=== PATIENT | male | born 1945 | race African-American/Black ===

== ENCOUNTER 2019-09-24 19:59 | Inpatient (IN) | payer MEDICARE, OTHER ==
[2019-09-24 20:00] VITALS: BP 77/44
--- NOTE | 2019-09-24 20:00 | NUR ---
GPS RN NOTE, PATIENT IS NEW ADMISSION FROM [facility]. PATIENT VITAL SIGNS FOLLOWS B/P 77/44 PULSE 47, SPO2 98 % ON 15 LITERS OF NON-REBREATHER O2, AND RESPIRATIONS 20. PATIENT IS ALERT X 1 WITH PERIODS OF NON RESPONSIVENESS AND SYNCOPE. PAGED [facility] AND INFORMED [facility]. [facility] GAVE ORDER TO DISCHARGE PATIENT TO E.R. FOR MEDICAL CLEARANCE. PAGED DR KILGORE AND INFORMED HIM FOR MY FINDINGS. DR KILGORE AGREED WITH TRANSFER. PACKING ROOM WORKER FLORENCE INFORMED OF TRANSFER. PATIENT TRANSFER TO E.R. WITH TWO EMT AND ONE NURSE WITH ACLS PARODICAL IN PLACE.
[2019-09-25] MEDS ORDERED: CHOL400T11 PO (10:11)
[2019-09-25] MEDS ORDERED: SENN-18 PO (10:11)
[2019-09-25] MEDS ORDERED: CHLO25TA2 PO (10:11)
[2019-09-25] MEDS ORDERED: AMLO10TA7 PO (10:11)
[2019-09-25] MEDS ORDERED: METO25TA4 PO (10:11)
[2019-09-25] MEDS ORDERED: LISI40TA4 PO (10:11)
[2019-09-25] MEDS ORDERED: QUET100T PO (10:11)
[2019-09-25] MEDS ORDERED: ARIP20TA4 PO (10:11)
[2019-09-25] MEDS ORDERED: ATOR40TA PO (10:11)
[2019-09-25] MEDS ORDERED: ASPI-605 PO (10:11)
[2019-09-25] MEDS ORDERED: LAMO200T10 PO (10:11)
== END 2019-09-24 20:19 | disposition short-term general hospital (02) | DRG 885 ==
LOC: GPS 19:59
PROVIDERS: ADMIT Psychiatry & Neurology Psychiatry; ATTEND Registered Nurse
DX: F29 Unspecified psychosis not due to a substance or known physiological condition (principal); Z91.14 Patient's other noncompliance with medication regimen

== ENCOUNTER 2019-09-24 20:36 | Inpatient (IN) | payer MEDICARE ==
[~2019-09-24] VITALS: Ht 172.7 cm; Wt 79.8 kg
--- NOTE | 2019-09-24 20:48 | NUR ---
PT BIB TRANSFER. PT WAS ADMITTED TO GPS FROM [facility] WHICH WAS PLACED ON 5150 FOR GD. WHILE BEING TRANSFERED TO GPS IN THE ELEVATOR PT HAD A SYNCOPAL EPISODE FOR 2 MINS. PT BP WAS IN THE LOW 80'S PER TRANSFER. PT THEN WAS SAT UP AND BECAME COUNSIOUS. PT BROUGHT TO E.D WAS PALCED IN BED 8 ON MONITOR AND PULSE OX. BP WAS 96/67 AND WAS SAT 100% ON ROOM AIR. PT IS AAOX4. PT STATED "I BECAME LIGHT HEADED AND MIGHT HAVE LOST CONSIOUS."
--- NOTE | 2019-09-24 20:58 | NUR ---
BLOOD COLLECTED BY LITHOPONE MILL WORKER.
[2019-09-24] MEDS ORDERED: IV NS 0.9% 1,000 ML BAG IV ONE (21:00)
[2019-09-24 21:10] LABS: BASOPHILS % (AUTO) 0.4 % (0.0-2.0); EOSINOPHILS % (AUTO) 0.5 % (0.0-6.0); HEMATOCRIT 43 % (39-51); HEMOGLOBIN 14.2 g/dL (13.5-17.5); LYMPHOCYTES % (AUTO) 35.3 % (20.0-44.0); MEAN CORPUSCULAR HGB CONC 33 g/dl (31.0-36.0); MEAN CORPUSCULAR VOLUME 95 fL (80-96); MONOCYTES # (AUTO) 0.4 /CMM (0.1-1.30); MONOCYTES % (AUTO) 6.4 % (2.0-12.0); NEUTROPHILS # (AUTO) 3.3 /CMM (1.8-8.9); NEUTROPHILS % (AUTO) 57.4 % (43.0-81.0); PLATELET COUNT (AUTO) 150 /CMM (150-450); RED BLOOD CELL COUNT(AUTO) 4.47 MIL/uL (4.5-6.0); WHITE BLOOD COUNT (AUTO) 5.7 K/uL (4.3-11.0)
--- NOTE | 2019-09-24 21:15 | NUR ---
XRAY AT BEDSIDE
--- NOTE | 2019-09-24 21:17 | NUR ---
BED ASSIGNMENT 310-2
[2019-09-24 21:35] LABS: CALCIUM, SERUM 9.7 mg/dL (8.5-10.1); CARBON DIOXIDE 26 mmol/L (21-32); CHLORIDE 105 mmol/L (98-107); CREATININE 1.2 mg/dL (0.6-1.3); GLUCOSE 135 mg/dL (74-106); POTASSIUM 3.9 mmol/L (3.5-5.1); SODIUM SERUM 139 mmol/L (136-145); UREA NITROGEN, BLOOD 16 mg/dL (7-18)
--- NOTE | 2019-09-24 21:58 | NUR ---
REPORT GIVEN TO JOSE EDUARDO NOYOLA FOR EV.
[2019-09-24] MEDS ORDERED: IV NS 0.9% 1,000 ML IV PRN (22:05)
[2019-09-24] MEDS ORDERED: ACETAMINOPHEN 325 MG TABLET PO PRN (22:30)
[2019-09-24] MEDS ORDERED: MAGNESIUM HYDROXIDE 30 ML UDC PO PRN (22:30)
[2019-09-24] MEDS ORDERED: Z GUARD REMEDY 2 OZ OINT TP PRN (22:30)
[2019-09-24] MEDS ORDERED: ONDANSETRON HCL/PF 4 MG/2 ML VIAL IVP PRN (22:30)
[2019-09-24] MEDS ORDERED: MAG HYDROX/AL HYDROX/SIMETH 30 ML UDC PO PRN (22:30)
[2019-09-24 22:45] VITALS: BP_SYST 122; BP_SYST 126; BP_SYST 132; BP_DIAS 75; BP_DIAS 78
--- NOTE | 2019-09-24 22:45 | NUR ---
SPECIALTY COOKLITHARGE SUPERVISOR NOTE RECEIVED PATIENT VIA GURNEY. PATIENT AMBULATED TO BED WITH STAND BY ASSIST. A/OX3. TOLERATING ROOM AIR. RESPIRATIONS ARE EVEN AND UNLABORED. NO S/S SOB NOTED. NO C/O PAIN AT THIS TIME. EXTERNAL TELE MONITOR APPLIED READING SINUS MILLIE HR 51 WITH BBB. IN NO APPARENT DISTRESS. IV ACCESS IN RFA#20 PATENT AND SALINE LOCKED. ROADMASTER OBTAINED ORTHOSTATIC VITALS AND BELONGING LIST. INATAL PHYSICAL ASSESSMENT COMPLETED. SKIN ASSESSMENT COMPLETED, PHOTOS TAKEN AND PLACED IN CHART. SITTER AT BEDSIDE. BED IS LOW AND LOCKED, HOB ELEVATED IN SEMI FOWLERS, SIDE RIALS UP X2. CALL LIGHT WITHIN REACH. WILL CONTINUE TO MONITOR.
--- NOTE | 2019-09-24 22:48 | NUR ---
PATIENT TAKEN UP TO ADMITTED ROOM.
[2019-09-24] MEDS: ENOXAPARIN SODIUM 40 MG/0.4 ML DISP.SYRIN SQ SCH (23:10)
[2019-09-25] VITALS: BP 113/73
--- NOTE | 2019-09-25 00:21 | NUR ---
telephone station installer note called lab to inform them there is specimen for sheepskin pickler. urine sample. will continue to monitor.
[2019-09-25 01:41] LABS: APPEARANCE,URINE SL CLOUDY (CLEAR); BILIRUBIN,URINE NEGATIVE (NEGATIVE); BLOOD, URINE NEGATIVE Ery/uL (NEGATIVE); COLOR,URINE YELLOW (YELLOW); KETONES,URINE NEGATIVE (NEGATIVE); LEUKOCYTE ESTERASE ,URINE NEGATIVE (NEGATIVE); NITRITE, URINE NEGATIVE (NEGATIVE); PH,URINE 5.5 (5.0-8.0); PROTEIN,URINE NEGATIVE (NEGATIVE); UGLUCOSE NEGATIVE (NEGATIVE); UROBILINOGEN,URINE 0.2 EU/dL (0.2)
[2019-09-25 04:00] VITALS: BP 143/80
[2019-09-25] MEDS: PANTOPRAZOLE 40 MG TABLET.DR PO SCH (06:40)
--- NOTE | 2019-09-25 07:00 | NUR ---
ARTS ADMINISTRATOR CLOSING NOTE PATIENT IN BED. A/OX3. REMAINS TOLERATING ROOM AIR. RESPIRATIONS ARE EVEN AND UNLABORED. NO SOB NOTED. NO C/O PAIN. EXTERNAL TELE MONITOR READING SINUS MILLIE. NO DISTRESS. IV ACCESS REMAINS IN RFA#20 RUNNING NS@100ML/HR. SITTER AT BEDSIDE. BED IS LOW AND LOCKED, HOB ELEVATED IN SEMI FOWLERS, SIDE RIALS UP X2. CALL LIGHT WITHIN REACH. WILL ENDORSE TO NEXT SHIFT
--- NOTE | 2019-09-25 08:01 | NUR ---
MS/RN Opening note Patient received from retail shift manager. A/O X4, vital signs taken, no fevers. Tele monitor reading SB with BBB, heart rate 51. IVF infusing at 100ml/hr via right arm 20g, no signs of any infiltration seen. Awaiting consults with Dr Hernandez and Dr Finch. Sitter at bedside and within arms reach of patient due to being on 51/50 hold (09/22 - 09/25 1630).
[2019-09-25 10:00] VITALS: BP_SYST 137; BP_SYST 139; BP_SYST 152; BP_DIAS 100; BP_DIAS 76; BP_DIAS 83
--- NOTE | 2019-09-25 10:00 | NUR ---
MS/RN Orthostatic BP Orthostatic blood pressures recorded on long vital signs form.
[2019-09-25] MEDS ORDERED: LAMO200T10 PO (10:11)
[2019-09-25] MEDS ORDERED: LISI40TA4 PO (10:11)
[2019-09-25] MEDS ORDERED: QUET100T PO (10:11)
[2019-09-25] MEDS ORDERED: CHOL400T11 PO (10:11)
[2019-09-25] MEDS ORDERED: ARIP20TA4 PO (10:11)
[2019-09-25] MEDS ORDERED: ATOR40TA PO (10:11)
[2019-09-25] MEDS ORDERED: METO25TA4 PO (10:11)
[2019-09-25] MEDS ORDERED: CHLO25TA2 PO (10:11)
[2019-09-25] MEDS ORDERED: AMLO10TA7 PO (10:11)
[2019-09-25] MEDS ORDERED: SENN-18 PO (10:11)
[2019-09-25] MEDS ORDERED: ASPI-605 PO (10:11)
--- NOTE | 2019-09-25 11:52 | NUR ---
MS/RN S/B Dr Hernandez Seen by Dr Hernandez - orthostatic blood pressures ordered to be taken every shift. Abnormal EKG, no medication to be adminsitered that slow AV conduction. Labs ordered for tomorrow.
[2019-09-25 12:42] LABS: EOSINOPHILS % (AUTO) 1.3 % (0.0-6.0); HEMATOCRIT 38 % (39-51); HEMOGLOBIN 12.7 g/dL (13.5-17.5); LYMPHOCYTES # (AUTO) 1.6 /CMM (0.8-4.8); MEAN CORPUSCULAR HGB CONC 33 g/dl (31.0-36.0); MEAN CORPUSCULAR VOLUME 95 fL (80-96); MONOCYTES # (AUTO) 0.3 /CMM (0.1-1.30); NEUTROPHILS # (AUTO) 2.7 /CMM (1.8-8.9); NEUTROPHILS % (AUTO) 56.7 % (43.0-81.0); PLATELET COUNT (AUTO) 114 /CMM (150-450); RED BLOOD CELL COUNT(AUTO) 4.04 MIL/uL (4.5-6.0); WHITE BLOOD COUNT (AUTO) 4.7 K/uL (4.3-11.0)
[2019-09-25 12:58] LABS: CREATININE 0.9 mg/dL (0.6-1.3); POTASSIUM 3.4 mmol/L (3.5-5.1)
[2019-09-25 13:02] LABS: ALBUMIN 3.3 g/dL (3.4-5.0); BILIRUBIN,TOTAL 0.6 mg/dL (0.2-1.0); MAGNESIUM 2.1 mg/dL (1.8-2.4); PHOSPHORUS 3.3 mg/dL (2.5-4.9); TOTAL PROTEIN, SERUM 7.8 g/dL (6.4-8.2)
[2019-09-25 13:10] LABS: THYROID STIMULATING HORMONE 0.855 uIU/mL (0.358-3.74)
[2019-09-25 16:00] VITALS: BP 142/86
--- NOTE | 2019-09-25 18:44 | NUR ---
Seen by dr. Finch ; new meds prescribed and consent sighed and faxed to pharmacy
--- NOTE | 2019-09-25 18:49 | NUR ---
Patient resting in bed. Breathing unlabored and even , no distress noted, no complain of pain or discomfort. Good appetite noted. IV fluid running as ordered. Patient ambulatory, sitter at bedside. All needs attended, patient kept comfortable. Will endorse to next shift for EV
--- NOTE | 2019-09-25 19:48 | NUR ---
DOMESTIC MAID OPENING NOTES PATIENT AWAKE AND WATCHING TV IN BED. SITTER PRESENT AT THE BEDSIDE; PATIENT ON 5150 HOLD. A/OX4. ON RA. NO S/S OF ACUTE RESPIRATORY DISTRESS; BREATHING IS EVEN AND UNLABORED. NO C/O PAIN AT THIS TIME. IV PRESENT ON RIGHT FA, SIZE 20, INTACT & PATENT, NS RUNNING AT 100ML/HR. SAFETY MEASURES IN PLACE AND PATIENT'S NEEDS MET. BED LOCKED, HOB ELEVATED, SIDE RAILS X2, CALL LIGHT WITHIN REACH. WILL CONTINUE TO MONITOR.
[2019-09-25 20:00] VITALS: BP 147/81
[2019-09-25] MEDS: ENOXAPARIN SODIUM 40 MG/0.4 ML DISP.SYRIN SQ SCH ×3 (21:00→22:00)
[2019-09-26] VITALS (7 sets, daily range): BP systolic 116–179; BP diastolic 59–94
[2019-09-26] MEDS ORDERED: hydrALAZINE HCL IV 20 MG VIAL IV PRN (06:00)
--- NOTE | 2019-09-26 06:01 | NUR ---
BRIM CURLER NOTES PATIENT'S BP: 179/94, HR: 71. NOTIFIED LEAK INSPECTOR DIRECTOR [facility], KHANH JERONIMO. RECEIVED ORDERS FOR PRN HYDRALAZINE 10 MG IV PUSH. WILL CARRY OUT.
[2019-09-26] MEDS: PANTOPRAZOLE 40 MG TABLET.DR PO SCH (06:31)
--- NOTE | 2019-09-26 06:44 | NUR ---
MUSIC RESEARCHER CLOSING NOTES PATIENT AWAKE IN BED. SITTER PRESENT AT THE BEDSIDE; PATIENT ON 5150 HOLD. A/OX4. ON RA. NO S/S OF ACUTE RESPIRATORY DISTRESS; BREATHING IS EVEN AND UNLABORED. NO C/O PAIN AT THIS TIME. TELE MONITOR READING SINUS MILLIE WITH OCCASIONAL BUNDLE BRANCH BLOCK, HEART RATE 56. IV PRESENT ON RIGHT FA, SIZE 20, INTACT & PATENT, HEP LOCKED AT THIS TIME. SAFETY MEASURES IN PLACE AND PATIENT'S NEEDS MET. BED LOCKED, HOB ELEVATED, SIDE RAILS X2, CALL LIGHT WITHIN REACH. WILL ENDORSE TO DAY SHIFT NURSE PLAN OF CARE.
--- NOTE | 2019-09-26 06:55 | NUR ---
CAR CONSTRUCTION SUPERINTENDENT CLOSING NOTES PATIENT'S BP: 152/78, HR: 55
--- NOTE | 2019-09-26 07:30 | NUR ---
Tele/RN Opening note Received patient in bed, AO x 3-4, able to responds all stimuli. patient denied pain or discomfort. Skin is war to touch, kept clean/dry, intact IV site. Respiratory even and unlabored with room air. Keep bed in lock with elevated HOB for secure airway. Sitter at bed side for safety. Call light within reach, will continue to monitor.
[2019-09-26 08:40] LABS: BASOPHILS % (AUTO) 0.4 % (0.0-2.0); EOSINOPHILS % (AUTO) 1.3 % (0.0-6.0); HEMATOCRIT 42 % (39-51); HEMOGLOBIN 13.8 g/dL (13.5-17.5); LYMPHOCYTES # (AUTO) 1.1 /CMM (0.8-4.8); LYMPHOCYTES % (AUTO) 29.9 % (20.0-44.0); MEAN CORPUSCULAR HGB CONC 33 g/dl (31.0-36.0); MEAN CORPUSCULAR VOLUME 95 fL (80-96); MONOCYTES # (AUTO) 0.3 /CMM (0.1-1.30); MONOCYTES % (AUTO) 6.9 % (2.0-12.0); NEUTROPHILS # (AUTO) 2.3 /CMM (1.8-8.9); NEUTROPHILS % (AUTO) 61.5 % (43.0-81.0); PLATELET COUNT (AUTO) 129 /CMM (150-450); RED BLOOD CELL COUNT(AUTO) 4.45 MIL/uL (4.5-6.0); WHITE BLOOD COUNT (AUTO) 3.7 K/uL (4.3-11.0)
[2019-09-26] MEDS: HALOPERIDOL 5 MG TABLET PO SCH ×3 (08:40→17:23)
[2019-09-26] MEDS: DIVALPROEX SODIUM 250 MG TABLET.DR PO SCH ×3 (08:40→17:23)
[2019-09-26] MEDS: BENZTROPINE MESYLATE (1 MG) 1 MG TABLET PO SCH ×3 (08:42→17:23)
[2019-09-26 09:07] LABS: ALBUMIN 3.8 g/dL (3.4-5.0); BILIRUBIN,TOTAL 0.8 mg/dL (0.2-1.0); CALCIUM, SERUM 9.3 mg/dL (8.5-10.1); CREATININE 0.9 mg/dL (0.6-1.3); MAGNESIUM 1.9 mg/dL (1.8-2.4); POTASSIUM 3.7 mmol/L (3.5-5.1); TOTAL PROTEIN, SERUM 8.5 g/dL (6.4-8.2)
--- NOTE | 2019-09-26 18:30 | NUR ---
MS/RN Closing note Patient in bed comfortably, does no appears pain or discomfort. Skin is warm to touch, keep clean/dry, intact IV site. Respiratory even and unlabored with room air, no sob or distress observed. Sitter at bed side for supervised safety patient. Keet bed in lock with elevated HOB for secure airway, call light within reach, will endorse fast food shift lead.
--- NOTE | 2019-09-26 19:30 | NUR ---
MS/RN OPENING NOTES: RECEIVED PATIENT AWAKE AND RESTING IN BED. A/OX3-4. ON RA. NO S/S OF ACUTE RESPIRATORY DISTRESS; BREATHING IS EVEN AND UNLABORED. NO C/O PAIN AT THIS TIME. IV PRESENT ON RIGHT FA, #20G, INTACT & PATENT, NS RUNNING AT 100ML/HR. PT'S HOLD AT @1629. PER RN REPORT, PT IS TO BE DC TO GPS. SAFETY MEASURES IN PLACE AND PATIENT'S NEEDS MET. BED LOCKED, HOB ELEVATED, SIDE RAILS X2, CALL LIGHT WITHIN REACH. WILL CONTINUE TO MONITOR ACCORDINGLY.
[2019-09-26] MEDS: ENOXAPARIN SODIUM 40 MG/0.4 ML DISP.SYRIN SQ SCH (21:34)
--- NOTE | 2019-09-26 21:52 | NUR ---
MS/BUSINESS CONTINUITY COORDINATOR NOTES: PT PLACED ON 14 DAY HOLD [address] KILGORE. IV ON THE RFA #20G DC'D. PT STABLE. VS WNL. ALL DUE MEDS GIVEN ORDERED. WILL ENDORSE AND GIVE REPORT TO RN FROM GPS FOR EV. PT TEACHING GIVEN. ALL CONSENT SIGNED. PT LEFT UNIT AT 2200 VIA WHEEL CHAIR.
[2019-09-26] MEDS ORDERED: HALO5TAB PO (23:33)
[2019-09-26] MEDS ORDERED: BENZ2AMP3 PO (23:33)
[2019-09-26] MEDS ORDERED: DIVA-78 PO (23:33)
[2019-09-26] MEDS ORDERED: PANT40SU PO (23:33)
[2019-09-26] MEDS ORDERED: ENOX40DI SQ (23:33)
[2019-09-26] MEDS ORDERED: ALLA266C2 TP (23:33)
[2019-09-27] MEDS ORDERED: ACET-868 PO (07:44)
[2019-09-27] MEDS ORDERED: MAGN400O6 PO (07:44)
[2019-09-27] MEDS ORDERED: MAG30ORA PO (07:44)
== END 2019-09-26 22:00 | DRG 312 ==
LOC: ER 20:38 → TELE 21:44 → MED 09-26 10:00
PROVIDERS: ADMIT Registered Nurse; ATTEND Student in an Organized Health Care Education/Training Program
DX: I95.1 Orthostatic hypotension (principal); F23 Brief psychotic disorder; E44.1 Mild protein-calorie malnutrition; F31.64 Bipolar disorder, current episode mixed, severe, with psychotic features; E87.6 Hypokalemia; E88.09 Other disorders of plasma-protein metabolism, not elsewhere classified; Z68.26 Body mass index [BMI] 26.0-26.9, adult; I10 Essential (primary) hypertension; R94.31 Abnormal electrocardiogram [ECG] [EKG]
CPT/HCPCS: 36415; 71045-TC; 80048-TC; 80053-TC; 80061-TC; 81000-TC; 82962-TC; 83735-TC; 84100-TC; 84439-TC; 84443-TC; 84484-TC; 85025-TC; 85730-TC; 87081-TC; 93307-TC; 93880-TC; 94799-TC; G0378; J0360; J1650; J7030

== ENCOUNTER 2019-09-26 22:45 | Inpatient (IN) | payer MEDICARE ==
[~2019-09-26] VITALS: Ht 172.7 cm; Wt 81.2 kg
--- NOTE | 2019-09-26 22:15 | NUR ---
GPS RN-NOTE:ADMISSION ADMITTED A 73-YR OLD MALE, FROM [facility] INITIALLY PT CAME FROM [facility]. ADMITTED ON 5150 FOR DTO. PER HOLD, PT. WAS PARANOID, CALLING OTHER PEOPLE TERRORISTS BECAUSE OF THEIR FACE MASKS, REFUSING TO TAKE MEDICATIONS AND THREATENING TO ATTACK OTHER RESIDENTS AND STAFF. UPON FACE TO FACE ASSESSMENT, PATIENT IS ALERT AND ORIENTED 2-3, DEPRESSED MOOD, EASILY GETS IRRITABLE, COOPERATIVE WITH CARE. PT WAS ADVISED OF THE HOLD. PT'S RIGHTS HANDBOOK AND A GUIDE TO PRESCRIPTION MEDICATIONS GIVEN. IN NO APPARENT DISTRESS NOTED. BELONGINGS WERE INVENTORIED AND CHECKED FOR CONTRABAND. PT. IS UNDER THE PSYCHIATRIC CARE OF DR. KILGORE ORDERS OBTAINED, AND UNDER THE MEDICAL CARE OF MUNIRA JERONIMO. SKIN BODY ASSESSMENT DONE. PT DENIES PAIN/ DISCOMFORT BED LOCKED AND PLACED IN LOWEST POSITION TO MAINTAIN SAFETY. FALL PRECAUTIONS IMPLEMENTED. WILL CONTINUE TO MONITOR Q15 MINS. FOR SAFETY AND BEHAVIOR. WILL NOTIFY NEXT OF KIN IN AM.
[~2019-09-26 22:45] MED LIST: AMLO10TA7 PO; ARIP20TA4 PO; ASPI-605 PO; ATOR40TA PO; CHLO25TA2 PO; CHOL400T11 PO; LAMO200T10 PO; LISI40TA4 PO; METO25TA4 PO; QUET100T PO; SENN-18 PO
[2019-09-26 23:00] VITALS: BP 157/79
[2019-09-26] MEDS ORDERED: TEMAZEPAM 7.5 MG CAPSULE PO PRN (23:00)
[2019-09-26] MEDS ORDERED: MAG HYDROX/AL HYDROX/SIMETH 30 ML UDC PO PRN (23:00)
[2019-09-26] MEDS ORDERED: MAGNESIUM HYDROXIDE 30 ML UDC PO PRN (23:00)
[2019-09-26] MEDS ORDERED: ACETAMINOPHEN 325 MG TABLET PO PRN (23:00)
[2019-09-26] MEDS ORDERED: BLOOD SUGAR DIAGNOSTIC 1 EACH STRIP IN ONE (23:00)
[2019-09-26] MEDS ORDERED: LORAZEPAM 0.5 MG TABLET PO PRN (23:00)
[2019-09-26] MEDS ORDERED: PANT40SU PO (23:33)
[2019-09-26] MEDS ORDERED: HALO5TAB PO (23:33)
[2019-09-26] MEDS ORDERED: DIVA-78 PO (23:33)
[2019-09-26] MEDS ORDERED: ENOX40DI SQ (23:33)
[2019-09-26] MEDS ORDERED: BENZ2AMP3 PO (23:33)
[2019-09-26] MEDS ORDERED: ALLA266C2 TP (23:33)
[2019-09-27] MEDS: PANTOPRAZOLE 40 MG/PACK PACK PO SCH (07:30)
[2019-09-27] MEDS ORDERED: ACET-868 PO (07:44)
[2019-09-27] MEDS ORDERED: MAG30ORA PO (07:44)
[2019-09-27] MEDS ORDERED: MAGN400O6 PO (07:44)
[2019-09-27 08:00] VITALS: BP 154/82
[2019-09-27 08:09] LABS: ALBUMIN 3.4 g/dL (3.4-5.0); BILIRUBIN,TOTAL 0.8 mg/dL (0.2-1.0); CALCIUM, SERUM 8.9 mg/dL (8.5-10.1); CREATININE 0.9 mg/dL (0.6-1.3); POTASSIUM 3.8 mmol/L (3.5-5.1); TOTAL PROTEIN, SERUM 7.8 g/dL (6.4-8.2)
[2019-09-27] MEDS: ASPIRIN EC 81 MG TABLET.DR PO SCH (08:39)
[2019-09-27] MEDS: AMLODIPINE BESYLATE 10 MG TABLET PO SCH (08:40)
[2019-09-27] MEDS: LISINOPRIL (20MG) 20 MG TABLET PO SCH (08:40)
[2019-09-27] MEDS: METOPROLOL SUCCINATE 25 MG TAB.SR.24H PO SCH (08:43)
[2019-09-27] MEDS: Z GUARD REMEDY 2 OZ OINT TP SCH (08:46)
[2019-09-27] MEDS: CHOLECALCIFEROL (VITAMIN D 3) 400 UNIT TABLET PO SCH (08:46)
--- NOTE | 2019-09-27 13:28 | NUR ---
FACILITY CONTACT: SW contacted [facility] [address] [place] [address] and spoke with Tabatha, bull gang supervisor who stated pt is able to return only if he is complaint with medication and stable. She states pt has been a resident since 2017 and is self-responsible she states pt does not have any family and states she does not have any collateral information due to pts paranoid personality. She states pts baseline is calm and quiet, isolative, and withdrawn.
--- NOTE | 2019-09-27 15:13 | NUR ---
INITIAL DISCHARGE PLAN: Pt will return to [facility] [address] [place] [address] . SW will help form a safe and proper discharge in collaboration with .
[2019-09-27 16:00] VITALS: BP 149/82
--- NOTE | 2019-09-27 16:14 | NUR ---
Group Note: SW encouraged the pt to attend group therapy on 09/27/19 but the pt appeared to be paranoid and delusional. Pt was deemed inappropriate for therapy at this time.
[2019-09-27 20:11] VITALS: BP 144/72
[2019-09-27] MEDS: SENNOSIDES 8.6 MG TABLET PO SCH (21:28)
[2019-09-27] MEDS: ATORVASTATIN 40 MG TABLET PO SCH (21:28)
[2019-09-27] MEDS: ENOXAPARIN SODIUM 40 MG/0.4 ML DISP.SYRIN SQ SCH (21:36)
[2019-09-28 08:00] VITALS: BP 144/80
[2019-09-28] MEDS: PANTOPRAZOLE 40 MG/PACK PACK PO SCH (08:20)
[2019-09-28] MEDS: LISINOPRIL (20MG) 20 MG TABLET PO SCH (08:38)
[2019-09-28] MEDS: METOPROLOL SUCCINATE 25 MG TAB.SR.24H PO SCH (08:39)
[2019-09-28] MEDS: AMLODIPINE BESYLATE 10 MG TABLET PO SCH (08:39)
[2019-09-28] MEDS: ASPIRIN EC 81 MG TABLET.DR PO SCH (08:40)
[2019-09-28] MEDS: DIVALPROEX SODIUM 250 MG TABLET.DR PO SCH ×3 (08:40→16:16)
[2019-09-28] MEDS: CHOLECALCIFEROL (VITAMIN D 3) 400 UNIT TABLET PO SCH (08:40)
[2019-09-28] MEDS: BENZTROPINE MESYLATE (1 MG) 1 MG TABLET PO SCH ×3 (08:40→16:16)
[2019-09-28] MEDS: HALOPERIDOL 5 MG TABLET PO SCH ×3 (08:40→16:16)
[2019-09-28] MEDS: HYDROCHLOROTHIAZIDE 25 MG TABLET PO SCH (08:41)
[2019-09-28] MEDS: Z GUARD REMEDY 2 OZ OINT TP SCH (09:06)
--- NOTE | 2019-09-28 10:26 | NUR ---
WOUND CARE CONSULT: PT PRESENTS WITH DRY SCALY SKIN ON LOWER LEGS AND FEET. DISCUSSED SKIN CARE AND PROTECTION WITH NURSING STAFF. WILL SEE PRN. CURRENT VERNA SCORE IS 21.
[2019-09-28] MEDS ORDERED: MINERAL OIL/PETROLATUM,WHITE 120 GM JAR TP SCH (10:30)
--- NOTE | 2019-09-28 15:36 | NUR ---
GROUP NOTE: SW encouraged the pt to participate in group therapy, however, pt is not appropriate at this time. Pt is easily agitated and paranoid. Pt stated, "leave my room woman."
[2019-09-28 16:00] VITALS: BP 122/74
[2019-09-28] MEDS: SENNOSIDES 8.6 MG TABLET PO SCH (22:17)
[2019-09-28] MEDS: ATORVASTATIN 40 MG TABLET PO SCH (22:17)
[2019-09-28] MEDS: ENOXAPARIN SODIUM 40 MG/0.4 ML DISP.SYRIN SQ SCH (22:21)
[2019-09-29 08:00] VITALS: BP 107/64
[2019-09-29] MEDS: AMLODIPINE BESYLATE 10 MG TABLET PO SCH (09:00)
[2019-09-29] MEDS: LISINOPRIL (20MG) 20 MG TABLET PO SCH (09:00)
[2019-09-29] MEDS: METOPROLOL SUCCINATE 25 MG TAB.SR.24H PO SCH (09:00)
[2019-09-29] MEDS: HYDROCHLOROTHIAZIDE 25 MG TABLET PO SCH (09:00)
[2019-09-29] MEDS: BENZTROPINE MESYLATE (1 MG) 1 MG TABLET PO SCH ×3 (09:01→16:34)
[2019-09-29] MEDS: ASPIRIN EC 81 MG TABLET.DR PO SCH (09:01)
[2019-09-29] MEDS: HALOPERIDOL 5 MG TABLET PO SCH ×3 (09:01→16:34)
[2019-09-29] MEDS: PANTOPRAZOLE 40 MG/PACK PACK PO SCH (09:01)
[2019-09-29] MEDS: DIVALPROEX SODIUM 250 MG TABLET.DR PO SCH ×3 (09:01→16:34)
[2019-09-29] MEDS: CHOLECALCIFEROL (VITAMIN D 3) 400 UNIT TABLET PO SCH (09:01)
[2019-09-29] MEDS: Z GUARD REMEDY 2 OZ OINT TP SCH (10:31)
--- NOTE | 2019-09-29 14:47 | NUR ---
GROUP NOTE: SW encouraged the pt to participate in group therapy but pt was asleep and not easily roused by verbal cues.
[2019-09-29 16:00] VITALS: BP 115/72
[2019-09-29 19:40] VITALS: BP 116/77
[2019-09-29] MEDS: SENNOSIDES 8.6 MG TABLET PO SCH (21:13)
[2019-09-29] MEDS: ATORVASTATIN 40 MG TABLET PO SCH (21:13)
[2019-09-29] MEDS: ENOXAPARIN SODIUM 40 MG/0.4 ML DISP.SYRIN SQ SCH (21:15)
[2019-09-30 08:00] VITALS: BP 111/75
[2019-09-30] MEDS: BENZTROPINE MESYLATE (1 MG) 1 MG TABLET PO SCH ×3 (08:28→17:09)
[2019-09-30] MEDS: HALOPERIDOL 5 MG TABLET PO SCH ×3 (08:28→17:09)
[2019-09-30] MEDS: ASPIRIN EC 81 MG TABLET.DR PO SCH (08:28)
[2019-09-30] MEDS: PANTOPRAZOLE 40 MG/PACK PACK PO SCH (08:28)
[2019-09-30] MEDS: HYDROCHLOROTHIAZIDE 25 MG TABLET PO SCH (08:29)
[2019-09-30] MEDS: DIVALPROEX SODIUM 250 MG TABLET.DR PO SCH ×3 (08:29→17:09)
[2019-09-30] MEDS: AMLODIPINE BESYLATE 10 MG TABLET PO SCH (08:30)
[2019-09-30] MEDS: CHOLECALCIFEROL (VITAMIN D 3) 400 UNIT TABLET PO SCH (08:30)
[2019-09-30 09:55] VITALS: BP 116/70
[2019-09-30] MEDS: LISINOPRIL (20MG) 20 MG TABLET PO SCH (09:56)
[2019-09-30] MEDS: METOPROLOL SUCCINATE 25 MG TAB.SR.24H PO SCH (09:57)
[2019-09-30] MEDS: Z GUARD REMEDY 2 OZ OINT TP SCH (09:57)
[2019-09-30] MEDS: MINERAL OIL/PETROLATUM,WHITE 454 GM JAR TP SCH (09:58)
--- NOTE | 2019-09-30 15:06 | NUR ---
GROUP THERAPY: TRACIE encouraged the pt to participate in group therapy but the pt refused stating, "I just want to stay in bed and read my book, therapy doesn't help." TRACIE attempted to provided individual intervention and pt did not engage in conversation. Addendum: 09/30/19 at 1509 by YEYO HODGES ERROR
--- NOTE | 2019-09-30 15:09 | NUR ---
GROUP NOTE: SW encouraged the pt to participate in group therapy but the pt refused stating, "I just want to stay in bed and read my book, therapy doesn't help." SW attempted to provided individual intervention and pt did not engage in conversation.
[2019-09-30 16:00] VITALS: BP 116/71
[2019-09-30 20:00] VITALS: BP 118/75
[2019-09-30] MEDS: ATORVASTATIN 40 MG TABLET PO SCH (21:17)
[2019-09-30] MEDS: SENNOSIDES 8.6 MG TABLET PO SCH (21:18)
[2019-09-30] MEDS: ENOXAPARIN SODIUM 40 MG/0.4 ML DISP.SYRIN SQ SCH (21:18)
[2019-10-01 08:00] VITALS: BP 120/68
[2019-10-01] MEDS: PANTOPRAZOLE 40 MG/PACK PACK PO SCH (08:01)
[2019-10-01] MEDS: ASPIRIN EC 81 MG TABLET.DR PO SCH (08:08)
[2019-10-01] MEDS: DIVALPROEX SODIUM 250 MG TABLET.DR PO SCH ×3 (08:08→17:53)
[2019-10-01] MEDS: HALOPERIDOL 5 MG TABLET PO SCH ×3 (08:08→17:53)
[2019-10-01] MEDS: BENZTROPINE MESYLATE (1 MG) 1 MG TABLET PO SCH ×3 (08:08→17:53)
[2019-10-01] MEDS: HYDROCHLOROTHIAZIDE 25 MG TABLET PO SCH (08:09)
[2019-10-01] MEDS: CHOLECALCIFEROL (VITAMIN D 3) 400 UNIT TABLET PO SCH (08:09)
[2019-10-01] MEDS: Z GUARD REMEDY 2 OZ OINT TP SCH (08:12)
[2019-10-01] MEDS: MINERAL OIL/PETROLATUM,WHITE 454 GM JAR TP SCH (08:12)
--- NOTE | 2019-10-01 09:00 | NUR ---
RN NOTE- PT ALERT WITHDRAWN ISOLATIVE IN ROOM.PO INTAKE GOOD THIS MORNING MED COMPLIANT ALL NEEDS ATTENDED BLUNTED AFFECT PARANOID WARY GUARDED. DENIES SI HI VH
[2019-10-01] MEDS: LISINOPRIL (20MG) 20 MG TABLET PO SCH (09:44)
[2019-10-01] MEDS: AMLODIPINE BESYLATE 10 MG TABLET PO SCH (09:45)
[2019-10-01] MEDS: METOPROLOL SUCCINATE 25 MG TAB.SR.24H PO SCH (09:46)
--- NOTE | 2019-10-01 09:50 | NUR ---
RN NOTE- EUCERIN CREME APPLIED TO BOTH LEGS AND FEET AT THIS TIME
--- NOTE | 2019-10-01 15:13 | NUR ---
GROUP NOTE: SW encouraged the pt to participate in group therapy however, pt was lethargic with mumbled speech. Pt states he is feeling better. Pt continues to isolate and withdraw. Pt did not engage with SW. SW will try at a later time.
[2019-10-01 16:00] VITALS: BP 114/71
[2019-10-01 21:11] VITALS: BP 139/91
[2019-10-01] MEDS: SENNOSIDES 8.6 MG TABLET PO SCH (21:20)
[2019-10-01] MEDS: ATORVASTATIN 40 MG TABLET PO SCH (21:20)
[2019-10-01] MEDS: ENOXAPARIN SODIUM 40 MG/0.4 ML DISP.SYRIN SQ SCH (21:21)
[2019-10-02] MEDS: PANTOPRAZOLE 40 MG/PACK PACK PO SCH (07:47)
[2019-10-02 08:00] VITALS: BP 126/71
[2019-10-02] MEDS: BENZTROPINE MESYLATE (1 MG) 1 MG TABLET PO SCH ×3 (08:17→17:14)
[2019-10-02] MEDS: LISINOPRIL (20MG) 20 MG TABLET PO SCH (08:17)
[2019-10-02] MEDS: HYDROCHLOROTHIAZIDE 25 MG TABLET PO SCH (08:18)
[2019-10-02] MEDS: ASPIRIN EC 81 MG TABLET.DR PO SCH (08:18)
[2019-10-02] MEDS: DIVALPROEX SODIUM 250 MG TABLET.DR PO SCH ×3 (08:19→17:14)
[2019-10-02] MEDS: CHOLECALCIFEROL (VITAMIN D 3) 400 UNIT TABLET PO SCH (08:19)
[2019-10-02] MEDS: METOPROLOL SUCCINATE 25 MG TAB.SR.24H PO SCH (08:19)
[2019-10-02] MEDS: AMLODIPINE BESYLATE 10 MG TABLET PO SCH (08:19)
[2019-10-02] MEDS: HALOPERIDOL 5 MG TABLET PO SCH ×3 (08:19→17:14)
[2019-10-02] MEDS: MINERAL OIL/PETROLATUM,WHITE 454 GM JAR TP SCH (09:21)
[2019-10-02] MEDS: Z GUARD REMEDY 2 OZ OINT TP SCH (09:22)
[2019-10-02 16:00] VITALS: BP 94/67
[2019-10-02 20:41] VITALS: BP 112/64
[2019-10-02] MEDS: ATORVASTATIN 40 MG TABLET PO SCH (21:13)
[2019-10-02] MEDS: SENNOSIDES 8.6 MG TABLET PO SCH (21:14)
[2019-10-02] MEDS: ENOXAPARIN SODIUM 40 MG/0.4 ML DISP.SYRIN SQ SCH (21:14)
[2019-10-03] MEDS: PANTOPRAZOLE 40 MG/PACK PACK PO SCH (07:59)
[2019-10-03 08:00] VITALS: BP 112/72
[2019-10-03] MEDS: CHOLECALCIFEROL (VITAMIN D 3) 400 UNIT TABLET PO SCH (08:00)
[2019-10-03] MEDS: LISINOPRIL (20MG) 20 MG TABLET PO SCH (08:00)
[2019-10-03] MEDS: HALOPERIDOL 5 MG TABLET PO SCH ×3 (08:00→16:26)
[2019-10-03] MEDS: BENZTROPINE MESYLATE (1 MG) 1 MG TABLET PO SCH ×3 (08:01→16:26)
[2019-10-03] MEDS: ASPIRIN EC 81 MG TABLET.DR PO SCH (08:01)
[2019-10-03] MEDS: AMLODIPINE BESYLATE 10 MG TABLET PO SCH (08:01)
[2019-10-03] MEDS: HYDROCHLOROTHIAZIDE 25 MG TABLET PO SCH (08:02)
[2019-10-03] MEDS: DIVALPROEX SODIUM 250 MG TABLET.DR PO SCH ×3 (08:12→16:26)
[2019-10-03] MEDS: METOPROLOL SUCCINATE 25 MG TAB.SR.24H PO SCH (08:14)
[2019-10-03] MEDS: MINERAL OIL/PETROLATUM,WHITE 454 GM JAR TP SCH (09:10)
[2019-10-03] MEDS: Z GUARD REMEDY 2 OZ OINT TP SCH (09:11)
[2019-10-03 16:01] VITALS: BP 108/64
[2019-10-03 17:26] LABS: BASOPHILS % (AUTO) 0.2 % (0.0-2.0); EOSINOPHILS % (AUTO) 1.5 % (0.0-6.0); HEMATOCRIT 43 % (39-51); HEMOGLOBIN 14.1 g/dL (13.5-17.5); LYMPHOCYTES % (AUTO) 53.6 % (20.0-44.0); MEAN CORPUSCULAR HGB CONC 33 g/dl (31.0-36.0); MEAN CORPUSCULAR VOLUME 95 fL (80-96); MONOCYTES # (AUTO) 0.3 /CMM (0.1-1.30); MONOCYTES % (AUTO) 9.1 % (2.0-12.0); NEUTROPHILS # (AUTO) 1.3 /CMM (1.8-8.9); NEUTROPHILS % (AUTO) 35.6 % (43.0-81.0); PLATELET COUNT (AUTO) 100 /CMM (150-450); WHITE BLOOD COUNT (AUTO) 3.7 K/uL (4.3-11.0)
[2019-10-03 18:40] LABS: CALCIUM, SERUM 9.5 mg/dL (8.5-10.1); CARBON DIOXIDE 33 mmol/L (21-32); CHLORIDE 100 mmol/L (98-107); CREATININE 1.2 mg/dL (0.6-1.3); GLUCOSE 107 mg/dL (74-106); SODIUM SERUM 138 mmol/L (136-145); UREA NITROGEN, BLOOD 28 mg/dL (7-18)
[2019-10-03 19:49] VITALS: BP 124/80
[2019-10-03] MEDS: ATORVASTATIN 40 MG TABLET PO SCH (21:51)
[2019-10-03] MEDS: ENOXAPARIN SODIUM 40 MG/0.4 ML DISP.SYRIN SQ SCH (21:51)
[2019-10-03] MEDS: SENNOSIDES 8.6 MG TABLET PO SCH (21:51)
[2019-10-04] MEDS: PANTOPRAZOLE 40 MG/PACK PACK PO SCH (07:46)
[2019-10-04 08:00] VITALS: BP 118/65
--- NOTE | 2019-10-04 08:16 | NUR ---
FACILITY CONTACT: TRACIE contacted [facility] [address] [place] [address] P: [phone] and spoke with Zenaida, benefits administrator to inform her pt will be discharged back tot he facility on this present day. Zenaida agreed with discharge plan.
[2019-10-04] MEDS: CHOLECALCIFEROL (VITAMIN D 3) 400 UNIT TABLET PO SCH (08:23)
[2019-10-04] MEDS: HALOPERIDOL 5 MG TABLET PO SCH ×2 (08:23→12:09)
[2019-10-04] MEDS: DIVALPROEX SODIUM 250 MG TABLET.DR PO SCH ×2 (08:23→12:09)
[2019-10-04] MEDS: ASPIRIN EC 81 MG TABLET.DR PO SCH (08:23)
[2019-10-04] MEDS: BENZTROPINE MESYLATE (1 MG) 1 MG TABLET PO SCH ×2 (08:23→12:09)
[2019-10-04] MEDS: HYDROCHLOROTHIAZIDE 25 MG TABLET PO SCH (08:24)
[2019-10-04] MEDS: LISINOPRIL (20MG) 20 MG TABLET PO SCH (08:24)
[2019-10-04] MEDS: AMLODIPINE BESYLATE 10 MG TABLET PO SCH (08:24)
[2019-10-04 08:25] VITALS: BP 118/65
[2019-10-04] MEDS: Z GUARD REMEDY 2 OZ OINT TP SCH (08:25)
[2019-10-04] MEDS: METOPROLOL SUCCINATE 25 MG TAB.SR.24H PO SCH (08:25)
[2019-10-04] MEDS: MINERAL OIL/PETROLATUM,WHITE 454 GM JAR TP SCH (08:25)
--- NOTE | 2019-10-04 08:34 | NUR ---
DISCHARGE NOTE: Pt will be discharged at 1:30pm via TAXI VOUCHER to [facility] Address: [address] [place] [address] . Pt has no family to notify. Pts mood is euthymic with congruent affect. Pt is ambulatory and is alert and oriented x 3, to self, place, and time. Pt denies visual/auditory hallucinations and denied suicidal/homicidal ideation. Pt will follow up with Psychiatrist Dr. Young at [facility] [address] [facility] [address] and Skin Installer: Dr. Javad Barney Address: [address] [place] [address] 5. The multidisciplinary exit care form was done, printed, signed, and given to the patient.
--- NOTE | 2019-10-04 09:00 | NUR ---
RN NOTE- PT ALERT ORINTED TO PERSON PLACE SITUATION MED COMPLIANT PO INTAKE GOOD CLEAN GROOMED PREPARING FOR DC DENIES ALL
--- NOTE | 2019-10-04 14:30 | NUR ---
INTERNET MARKETING STRATEGIST NOTE- PT DC TO ASSISTED [facility]IVING [facility]ILITY VIA TAXI AT THIS TIME. VS -B/P-116/66, HR- 64, RR- 18, TEMP 97.8 SATURATION 97% RA. PT IS ALERT ORIENTED TO PERSON PLACE AND SITUATION . DENIES SI HI AH VH AT PRESENT MOMENT. DC INSTRUCTIONS AND PRESCRIPTIONS REVIEWED W PATIENT AND HE VERBALIZES UNDERSTANDING. NEEDS ATTENDED, VALUABLES RETURNED AND SIGNED FOR. NO PHOTOS TAKEN OF EXFOLIATED SKIN ON LEGS. PT REFUSED. ID [id number] REMOVED AND PT ESCORTED OFF OF UNIT BY STAFF
== END 2019-10-04 14:30 | DRG 885 ==
LOC: GPS 22:45
PROVIDERS: ADMIT Psychiatry & Neurology Psychiatry; ATTEND Nurse Practitioner Acute Care
DX: F25.9 Schizoaffective disorder, unspecified (principal); I10 Essential (primary) hypertension; E78.5 Hyperlipidemia, unspecified; E55.9 Vitamin D deficiency, unspecified; F31.9 Bipolar disorder, unspecified; F29 Unspecified psychosis not due to a substance or known physiological condition
CPT/HCPCS: 36415; 80048-TC; 80053-TC; 80061-TC; 80164-TC; 85025-TC; J1650